=== PATIENT | male | born 1940 | race Caucasian/White ===

== ENCOUNTER 2019-05-12 15:45 | Emergency (ER) | payer MEDICAID ==
[~2019-05-12] VITALS: Ht 170.2 cm; Wt 69.4 kg
[~2019-05-12 15:45] MED LIST: ACET500C5 PO; D-ME473S2 PO
[2019-05-12 15:58] VITALS: BP 136/66; PULSE 73; RESP 20; Ht 170.2 cm; Wt 69.4 kg
[2019-05-12] MEDS ORDERED: ACETAMINOPHEN 500 MG TAB PO STA (16:31)
--- NOTE | 2019-05-12 18:18 | ERD ---
ER Documentation Chief Complaint Chief Complaint C/O FEVER CHEST CONGESTION X 2 DAYS; RASPY VOICE HPI 79-year-old male presents with fever and cough for last 2 days. There is no history of chest pain, vomiting, abdominal pain. There is no fever triage. ROS All systems reviewed and are negative except as per history of present illness. Medications Home Meds Active Scripts Dextromethorphan Hb-Promethazine Hcl* (Promethazine DM* Syrup) 473 Ml Syrup, 5 ML PO Q6 PRN for COUGH for 5 Days, ML Prov:BEE PRAJAPATI MD 05/12/19 Acetaminophen* (Tylophen*) 500 Mg Capsule, 1 CAP PO Q6H PRN for PAIN AND OR ELEVATED TEMP, #15 CAP Prov:BEE PRAJAPATI MD 05/12/19 Allergies Allergies: Coded Allergies: No Known Allergy (Unverified , 05/12/19) PMhx/Soc History of Surgery: Yes (cardiac surgery) Hx Cardiac Disorders: Yes (hypertension) Hx Alcohol Use: No Hx Substance Use: No Hx Tobacco Use: No Smoking Status: Never smoker FmHx Family History: No diabetes, No coronary disease, No other Physical Exam Vitals Vital Signs Date Temp Pulse Resp B/P (MAP) Pulse Ox O2 O2 Flow FiO2 Time Delivery Rate 05/12/19 97.7 73 20 136/66 94 15:58 (89) Physical Exam Const: No acute distress Head: Atraumatic Eyes: Normal Conjunctiva ENT: Normal External Ears, Nose and Mouth. TMs and oropharynx normal. Neck: Full range of motion. No meningismus. Resp: Clear to auscultation bilaterally .no rales, wheezing or retractions. Cardio: Regular rate and rhythm, no murmurs Abd: Soft, non tender, non distended. Normal bowel sounds Skin: No petechiae or rashes Back: No midline or flank tenderness Ext: No cyanosis, or edema Neur: Awake and alert Psych: Normal Mood and Affect Results 24 hrs Current Medications Medications Dose Sig/Chau Start Time Status Last (Trade) Ordered Route PRN Stop Time Admin Dose Reason Admin 500 mg ONCE STAT 05/12/19 DC 05/12/19 Acetaminophen PO 16:31 16:39 (Tylenol 05/12/19 16:33 Tab) Procedures/MDM Chest X-ray 1V Interpreted by me: Soft Tissue: No acute abnormalities Bones: No acute abnormalities Mediastinum/Cardiac Silhouette/Lungs: No acute abnormalities EKG: Rate/Rhythm: Normal Sinus Rhythm .rate equals 66. QRS, ST, T-waves: No changes consistent w/ acute ischemia Impression: No evidence of ischemia or arrhythmia She presents with her fever and URI symptoms. Patient does not meet SIRS criteria and has no evidence of hypoxemia, rest or distress, chest pain or abdominal pain. Will be treated with Promethazine DM, Tylenol for what appears to be a viral URI. The patient was stable with no new complaints during the ER course. Clinically, there is no current evidence to suggest meningitis, sepsis, acute abdomen, pneumonia, stroke, acute coronary syndrome, pulmonary embolism, aortic dissection or any other emergent condition appearing to require further evaluation or hospitalization. Patient counseled regarding my diagnostic impression and care plan. Prior to discharge all questions answered. Pt agrees with treatment plan and understands strict return precautions. Pt is instructed to follow up with primary care provider within 24-48 hours. Precautionary instructions provided including instructions to return to the ER if not improving or for any worsening or changing symptoms or concerns. Disclaimer: Inadvertent spelling and grammatical errors are likely due to EHR/dictation software use and do not reflect on the overall quality of patient care. Also, please note that the electronic time recorded on this note does not necessarily reflect the actual time of the patient encounter. Departure Diagnosis: Primary Impression: URI (upper respiratory infection) URI type: unspecified URI Qualified Codes: J06.9 - Acute upper respiratory infection, unspecified Additional Impression: Fever Fever type: unspecified Qualified Codes: R50.9 - Fever, unspecified Condition: Stable Patient Instructions: Fever Control (Adult), Uri, Viral, No Abx (Adult) Additional Instructions: x ray y ekg normal. Probablamente un virus que dura 2-4 genao. cheque otro vez en el proximo jose para mas simptomas- vomito, dolor, fatemeh, problemas con respirando, o con murillo doctor primario. BEE PRAJAPATI MD May 12, 2019 18:18
== END 2019-05-12 21:25 | disposition home or self-care (01) ==
LOC: FTE 15:45
DX: J06.9 Acute upper respiratory infection, unspecified (principal); I10 Essential (primary) hypertension
CPT/HCPCS: 71045; 93005; Z7502; Z7610